=== PATIENT | male | born 1980 | race Caucasian/White ===

== ENCOUNTER 2017-03-07 21:44 | Emergency (ER) ==
[2017-03-07 21:53] VITALS: BP 138/97; TEMP 98.6; BMI 35.9
[2017-03-07] MEDS ORDERED: DILAUDID 1 MG/ML SYRINGE IM STA (22:34)
[2017-03-07] MEDS ORDERED: ROCEPHIN IM STA (22:35)
[2017-03-07] MEDS ORDERED: LIDOCAINE 1 % AMP 5 ML (SUTURES) IM STA (22:35)
[2017-03-07] MEDS ORDERED: ZITHROMAX PO STA (22:38)
[2017-03-07 22:39] LABS: BILIRUBIN,URINE Negative (NEGATIVE); KETONES,URINE Negative (NEGATIVE); LEUKOCYTE ESTERASE ,URINE 3+ (NEGATIVE); NITRITE,URINE Negative (NEGATIVE); PH,URINE 5.5 (5-9); PROTEIN,URINE 1+ (NEGATIVE); URINE, BLOOD 2+ (NEGATIVE)
--- NOTE | 2017-03-07 22:45 | ED.PDOC ---
General ED Provider: Dr. BITA CHRISTIANSEN Chief Complaint: Non-specific Complaint Stated Complaint: patient complaints of Painful urination, colored discharge, swelling of the penis for one day. Time Seen by Physician: 22:39 Mode of Arrival: Walk-In Information Source: Patient Exam Limitations: No limitations Nursing and Triage Documentation Reviewed and Agree: Yes Complaint Exam - Complaint/Exam Patient Complains of: Reports: Dysuria Onset/Duration: 1 day Symptoms Are: Still present Timing: Constant Initial Severity: Moderate Current Severity: Moderate Location of Pain: Reports: Penis Character: Reports: Dark urine, Cloudy urine Aggravating: Reports: Voiding Alleviating: Reports: None Associated Signs and Symptoms: Reports: Dysuria. Denies: Diaphoresis, Back pain , Fever, Hematuria, Constipation, Blood in stool, Rectal pain, Appetite change, Nausea, Vomiting, Penile swelling, Penile discharge, Decreased urine output, Increased urine frequency, Increased thirst, Decreased activity, Lethargy, Scrotal pain, Scrotal swelling, Abdominal Pain Testicular Torsion Risk Factors: Reports: None Surgical Obstruction Risk Factors: Reports: None Related Surgical History: Reports: None Abdominal Findings: Present: None Genitalia Exam: Present: Normal findings (except hypospadias) Review of Systems - Review Of Systems Constitutional: Reports: No symptoms Eyes: Reports: No symptoms Ears, Nose, Mouth, Throat: Reports: No symptoms Respiratory: Reports: No symptoms Cardiac: Reports: No symptoms GI: Reports: No symptoms : Reports: Burning, Dysuria, Discharge, Pain Musculoskeletal: Reports: No symptoms Skin: Reports: No symptoms Neurological: Reports: No symptoms Endocrine: Reports: No symptoms Hematologic/Lymphatic: Reports: No symptoms All Other Systems: Reviewed and Negative Past Medical History - Past Medical History Previously Healthy: Yes Endocrine: Reports: None Cardiovascular: Reports: None Respiratory: Reports: None Hematological: Reports: None Gastrointestinal: Reports: None Genitourinary: Reports: None Neuro/Psych: Reports: None Musculoskeletal: Reports: None Cancer: Reports: None - Surgical History General Surgical History: Reports: Appendectomy, Orthopedic (hand surgery ) - Family History Family History: Reports: None - Social History Smoking Status: Current every day smoker Hx Substance Use: Yes Alcohol Screening: Occasionally - Immunizations Tetanus Shot up to Date: Yes Physical Exam - Physical Exam Appearance: Ill-appearing, Well-nourished Ill-appearing: Mild Pain Distress: Severe Eyes: Conjunctiva clear ENT: Ears normal, Nose normal, Oropharynx normal Neck: Supple Respiratory: Airway patent, Breath sounds clear, Breath sounds equal, Respirations nonlabored Cardiovascular: RRR, Pulses normal, No rub, No murmur GI/: Soft, Nontender, No masses, Bowel sounds normal, No Organomegaly Musculoskeletal: Normal strength, ROM intact, No edema, No calf tenderness Skin: Warm, Dry, Normal color Neurological: Sensation intact, Motor intact, Reflexes intact, Cranial nerves intact, Alert, Oriented Psychiatric: Affect appropriate, Mood appropriate Critical Care Note - Critical Care Note Total Time (mins): 0 Course - Course Orders, Labs, Meds: Lab Review 03/07/17 22:30 Urine Color Yellow Urine Clarity Cloudy Urine pH 5.5 Ur Specific Bryan >=1.030 Urine Protein 1+ Urine Glucose (UA) Negative Urine Ketones Negative Urine Blood 2+ Urine Nitrite Negative Urine Bilirubin Negative Urine Urobilinogen 1.0 Ur Leukocyte Esterase 3+ Urine Microscopic RBC 2-5 Urine Microscopic WBC Tntc Ur Squamous Epith Cells Not present Orders Category Date Time Status CHLAMYDIA/GC AMPLIFICATION Stat LAB 03/07/17 22:30 Received URINALYSIS C & S IF INDICATED Stat LAB 03/07/17 22:30 Completed URINE CULTURE Routine LAB 03/07/17 22:50 Completed Azithromycin [Zithromax] MEDS 03/07/17 22:38 Discontinued 1,000 mg PO ONCE STA Ceftriaxone Sodium [Rocephin] MEDS 03/07/17 22:35 Discontinued 1 gm IM ONCE STA Hydromorphone HCl [Dilaudid 1 mg/ml Syringe] MEDS 03/07/17 22:34 Discontinued 1 mg IM ONCE STA Lidocaine HCl/Pf [Lidocaine 1 % Amp 5 ml (Sutures)] MEDS 03/07/17 22:35 Discontinued 2.1 ml IM ONCE STA Medications Discontinued Medications Generic Name Dose Route Start Last Admin Trade Name Freq PRN Reason Stop Dose Admin Azithromycin 1,000 mg 03/07/17 22:38 03/07/17 22:56 Zithromax PO 03/07/17 22:39 1,000 mg ONCE STA Administration Ceftriaxone Sodium 1 gm 03/07/17 22:35 03/07/17 22:56 Rocephin IM 03/07/17 22:36 1 gm ONCE STA Administration Hydromorphone HCl 1 mg 03/07/17 22:34 03/07/17 22:55 Dilaudid 1 Mg/Ml Syringe IM 03/07/17 22:35 1 mg ONCE STA Administration Lidocaine HCl 2.1 ml 03/07/17 22:35 03/07/17 22:56 Lidocaine 1 % Amp 5 Ml (Sutures) IM 03/07/17 22:36 2.1 ml ONCE STA Administration Vital Signs: Temp Pulse Resp BP Pulse Ox 03/07/17 21:44 98.6 F 79 18 138/97 H 96 Departure - Departure Time of Disposition: 23:07 Disposition: HOME SELF-CARE Discharge Problem: Urinary tract infection Instructions: Urinary Tract Infection in Men (ED), Dysuria (ED) Condition: Good Pt referred to PMD for follow-up: Yes Additional Instructions: Take antibiotics as prescribed Take Pyridium as prescribed. Follow up with PCP in 3 days Prescriptions: Hydrocodone/Acetaminophen [[place] 5-325 Tablet] 1 tab PO Q6HR PRN #12 tablet PRN Reason: PAIN Amoxicillin [Amoxil] 500 mg PO TID #14 capsule Phenazopyridine HCl [Pyridium] 100 mg PO TID PRN #10 tablet PRN Reason: Urinary Burning. Allergies/Adverse Reactions: Allergies No Known Allergies Allergy (Unverified 08/26/13 13:08) Home Medications: Ambulatory Orders Amoxicillin [Amoxil] 500 mg PO TID #14 capsule 03/07/17 Hydrocodone/Acetaminophen [[place] 5-325 Tablet] 1 tab PO Q6HR PRN #12 tablet Phenazopyridine HCl [Pyridium] 100 mg PO TID PRN #10 tablet 03/07/17 Disposition Discussed With: Patient, Family
[2017-03-07 22:49] LABS: ADD URINE MICROSCOPIC YES
== END 2017-03-07 23:15 | disposition home or self-care (01) ==
LOC: ED 21:44
DX: N39.0 Urinary tract infection, site not specified (principal); F17.210 Nicotine dependence, cigarettes, uncomplicated
CPT/HCPCS: 36415; 81001; 87086; 87800; 96372; 99282

== ENCOUNTER 2017-06-30 10:55 | Emergency (ER) ==
[2017-06-30 11:03] VITALS: TEMP 97.8; BMI 35.3
[2017-06-30] MEDS ORDERED: BACTRIM DS 800/160 MG PO STA (11:08)
[2017-06-30] MEDS ORDERED: NORCO 7.5-325 PO STA (11:18)
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
[2017-06-30 12:11] LABS: BASOPHILS % (AUTO) 0.3 % (0.0-3.0); EOSINOPHILS # (AUTO) 0.2 K/ul (0.0-0.7); EOSINOPHILS % (AUTO) 1.6 % (0.0-7.0); HEMOGLOBIN 15.8 g/dl (14.0-18.0); IMMATURE GRANULOCYTE % (AUTO) 0.4 % (0.0-5.0); LYMPHOCYTES # (AUTO) 2.9 K/uL (0.60-3.4); LYMPHOCYTES % (AUTO) 29.9 (10.0-50.0); MEAN CORPUSCULAR HEMOGLOBIN 30.3 pg (27.0-31.0); MEAN CORPUSCULAR HGB CONC 35.9 (31.8-35.4); MEAN CORPUSCULAR VOLUME 84.3 fl (80.0-94.0); MONOCYTES # (AUTO) 0.8 K/uL (0.4-2.0); NEUTROPHILS # (AUTO) 5.7 K/ul (2.0-6.9); NEUTROPHILS % (AUTO) 59.8; PLATELET COUNT 191 10^3/uL (140-440); RED BLOOD COUNT 5.22 10^6/ul (4.70-6.10); WHITE BLOOD COUNT 9.55 K/ul (4.2-10.2)
[2017-06-30 12:30] LABS: ALBUMIN 3.4 g/dL (3.4-5.0); ALBUMIN/GLOBULIN RATIO 0.69; BILIRUBIN,TOTAL 0.45 mg/dL (0.00-1.20); BUN/CREATININE RATIO 9.19; CALCIUM 9.3 mg/dL (8.2-10.2); CREATININE 0.87 mg/dL (0.60-1.10); TOTAL PROTEIN 8.3 g/dL (6.4-8.2)
[2017-06-30 13:57] VITALS: BP 160/98
== END 2017-06-30 14:29 | disposition home or self-care (01) ==
LOC: ED 10:55
DX: L03.115 Cellulitis of right lower limb (principal); S91.031A Puncture wound without foreign body, right ankle, initial encounter; R03.0 Elevated blood-pressure reading, without diagnosis of hypertension; R94.5 Abnormal results of liver function studies; F17.210 Nicotine dependence, cigarettes, uncomplicated; W26.8XXA Contact with other sharp object(s), not elsewhere classified, initial encounter
CPT/HCPCS: 36415; 80053; 85025; 87040; 99283